=== PATIENT | female | born 1955 | race Caucasian/White ===

== ENCOUNTER 2021-06-15 09:54 | Emergency (ER) | payer OTHER ==
[~2021-06-15] VITALS: Ht 152.4 cm; Wt 78.9 kg
[2021-06-15 10:43] LABS: BASOPHILS % 0.2 % (0.0-1.0); EOSINOPHILS # (AUTO) 0.2 (0.0-0.4); EOSINOPHILS % 2.3 % (0.0-6.0); HEMATOCRIT 40.7 % (34.2-44.1); HEMOGLOBIN 13.1 g/dL (12.0-16.0); LYMPHOCYTES # (AUTO) 1.5 (1.0-3.2); LYMPHOCYTES % 15.7 % (18.0-39.1); MEAN CORPUSCULAR HEMOGLOBIN 28.6 pg (28-32); MEAN CORPUSCULAR HGB CONC 32.2 g/dL (31-35); MEAN CORPUSCULAR VOLUME 88.9 fL (81-99); MONOCYTES # (AUTO) 0.5 (0.2-0.8); MONOCYTES % 5.7 % (4.4-11.3); NEUTROPHILS % 75.8 % (38.7-80.0); PLATELET COUNT 355 x10e3/uL (140-360); RED BLOOD COUNT 4.58 x10e6/uL (3.6-5.1); RED CELL DISTRIBUTION WIDTH 14.2 % (11.7-14.4)
[2021-06-15 10:50] LABS: INR 0.95; PROTHROMBIN TIME 13.4 seconds (11.9-14.5)
[2021-06-15 10:51] LABS: PARTIAL THROMBOPLASTIN TIME 53.2 seconds (23.8-35.5)
[2021-06-15 11:01] LABS: ALBUMIN 2.5 g/dL (3.5-5.0); ALBUMIN/GLOBULIN RATIO 0.5 (0.8-2.0); ANION GAP 16.2 mmol/L (8-16); CALCIUM 9.1 mg/dL (8.4-10.2); CREATININE, SERUM 0.86 mg/dL (0.57-1.11); MAGNESIUM 1.6 MG/DL (1.3-2.1); POTASSIUM 4.2 mmol/L (3.5-5.1)
[2021-06-15 11:07] LABS: CREATINE KINASE MB 2.6 ng/mL (0-5.0)
[2021-06-15] MEDS ORDERED: ATENOLOL50 MG PO (12:11)
[2021-06-15] MEDS ORDERED: CYMBALTA60 MG PO (12:19)
[2021-06-15] MEDS ORDERED: NEURONTIN300 MG PO (12:20)
[2021-06-15] MEDS ORDERED: XANAX1 MG PO (12:21)
[2021-06-15] MEDS ORDERED: CARAFATE1 GM/10 ML PO (12:25)
[2021-06-15] MEDS ORDERED: LEVEMIR100 UNIT/1 SQ (12:25)
[2021-06-15] MEDS ORDERED: NOVOLOG100 UNIT/1 SC (12:25)
[2021-06-15] MEDS ORDERED: procardia PO (12:25)
[2021-06-15] MEDS ORDERED: PANTOPRAZOLE SO40 MG PO (12:25)
[2021-06-15] MEDS ORDERED: HYDROCODONE/APAP 5MG-325MG TAB PO NR (12:30)
== END 2021-06-15 12:48 | disposition home or self-care (01) ==
LOC: ER 10:32
DX: S00.83XA Contusion of other part of head, initial encounter (principal); R42 Dizziness and giddiness; M25.562 Pain in left knee; S80.211A Abrasion, right knee, initial encounter; W18.11XA Fall from or off toilet without subsequent striking against object, initial encounter; Y92.002 Bathroom of unspecified non-institutional (private) residence as the place of occurrence of the external cause; I10 Essential (primary) hypertension; E11.65 Type 2 diabetes mellitus with hyperglycemia; E78.5 Hyperlipidemia, unspecified; K76.9 Liver disease, unspecified; I25.2 Old myocardial infarction; Z86.73 Personal history of transient ischemic attack (TIA), and cerebral infarction without residual deficits
CPT/HCPCS: 36415; 70450; 71045; 72125; 80053; 82550; 82553; 83735; 84484; 85025; 85610; 85730; 93005; 99284

== ENCOUNTER 2022-06-07 13:21 | Emergency (ER) | payer OTHER ==
[~2022-06-07] VITALS: Ht 152.4 cm; Wt 78.9 kg
[~2022-06-07 13:21] MED LIST: ATENOLOL50 MG PO; CARAFATE1 GM/10 ML PO; CYMBALTA60 MG PO; LEVEMIR100 UNIT/1 SQ; NEURONTIN300 MG PO; NOVOLOG100 UNIT/1 SC; PANTOPRAZOLE SO40 MG PO; XANAX1 MG PO; procardia PO
[2022-06-07 14:16] LABS: CLARITY,URINE CLOUDY (CLEAR); COLOR,URINE YELLOW (YELLOW); KETONES,URINE NEGATIVE (NEGATIVE); LEUKOCYTE ESTERASE ,URINE SMALL (NEGATIVE); NITRITE,URINE POSITIVE (NEGATIVE); PROTEIN,URINE DIPSTICK 2+ (NEGATIVE)
[2022-06-07 14:17] LABS: URINE UROBILINOGEN 0.2 mg/dL (0.2 - 1)
[2022-06-07 14:19] LABS: RBC,URINE >50 /HPF (0-5); WBC,URINE (MAN) >50 /HPF (0-5)
[2022-06-07 14:22] LABS: BACTERIA,URINE FEW /HPF; EPITHELIAL CELLS,URINE FEW /LPF
[2022-06-07] MEDS ORDERED: CEFDINIR300 MG PO (14:31)
[2022-06-07 14:40] VITALS: BP 120/62
== END 2022-06-07 14:43 | disposition home or self-care (01) ==
LOC: ER 13:28
DX: R30.0 Dysuria (principal); N39.0 Urinary tract infection, site not specified; R31.9 Hematuria, unspecified; I10 Essential (primary) hypertension; E11.9 Type 2 diabetes mellitus without complications; J44.9 Chronic obstructive pulmonary disease, unspecified; E78.5 Hyperlipidemia, unspecified; I25.10 Atherosclerotic heart disease of native coronary artery without angina pectoris; K76.9 Liver disease, unspecified; I25.2 Old myocardial infarction; Z86.73 Personal history of transient ischemic attack (TIA), and cerebral infarction without residual deficits
CPT/HCPCS: 81001; 87086; 87186; 99283